=== PATIENT | male | born 1970 | race Caucasian/White ===

== ENCOUNTER → 2019-05-03 | Outpatient (CLI) | payer OTHER | END | disposition home or self-care (01) | LOC: SLP 20:13 | PROVIDERS: ATTEND Family Medicine | DX: G47.33 Obstructive sleep apnea (adult) (pediatric) (principal) | CPT/HCPCS: 95810 ==

== ENCOUNTER → 2019-05-13 | Outpatient (CLI) | payer OTHER | END | disposition home or self-care (01) | LOC: SLP 20:34 | PROVIDERS: ATTEND Family Medicine | DX: G47.33 Obstructive sleep apnea (adult) (pediatric) (principal) | CPT/HCPCS: 95811 ==

== ENCOUNTER → 2019-07-19 | Outpatient (CLI) | payer OTHER | END | disposition home or self-care (01) | LOC: RAH 09:10 | PROVIDERS: ATTEND Internal Medicine Cardiovascular Disease | DX: I25.10 Atherosclerotic heart disease of native coronary artery without angina pectoris (principal); R07.9 Chest pain, unspecified; R94.31 Abnormal electrocardiogram [ECG] [EKG]; R06.00 Dyspnea, unspecified | CPT/HCPCS: 78452; 93017; 96374; A9500 ×2 ==

== ENCOUNTER → 2019-08-13 | Outpatient (CLI) | payer OTHER | END | disposition home or self-care (01) | LOC: EDBD → RAH 09:32 | PROVIDERS: ATTEND Internal Medicine Gastroenterology | DX: R12 Heartburn (principal); R14.2 Eructation | CPT/HCPCS: 74240 ==

== ENCOUNTER → 2019-08-23 | Outpatient (CLI) | payer OTHER | END | disposition home or self-care (01) | LOC: EDBD → RAH 08-11 06:45 | PROVIDERS: ATTEND Internal Medicine Gastroenterology | DX: R14.2 Eructation (principal) | CPT/HCPCS: 78264; A9541 ==